=== PATIENT | female | born 1935 | race Caucasian/White ===

== ENCOUNTER 2019-02-13 12:41 | Emergency (ER) | payer OTHER, BC ==
[2019-02-13] MEDS ORDERED: NA CHLORIDE 0.9% 500 ML ONE ×2 (13:56→15:00)
[2019-02-13 14:05] LABS: Absolute Lymphocytes (CBC) 0.7 K/uL (0.7-4.9); Absolute Monocytes 1.1 K/uL (0.1-1.3); Absolute Neutrophil 8.5 K/uL (1.8-8.0); Basophils % 0.2 % (0-1.3); Eosinophils % 0.8 % (0-4.4); Hematocrit 42.6 % (36.0-45.0); Lymphocytes % 6.6 % (15.3-44.8); MPV 8.5 fL (7.6-11.3); Monocytes % 10.6 % (3.3-12.3); RBC Red Blood Cell Count 4.94 M/uL (3.86-4.86)
[2019-02-13 14:18] LABS: Bilirubin Direct 0.2 mg/dL (0-0.2); Bilirubin Total 0.8 mg/dL (0.2-1.0); Protein, Total 7.7 g/dL (6.4-8.2)
[2019-02-13] MEDS ORDERED: POTASSIUM 25 MEQ EFFERV TAB ONE (14:51)
--- NOTE | 2019-02-13 15:52 | ER ---
Nurse's Notes [facility] Name: Marianne Moncada Age: 83 yrs Sex: Female : 1935 Arrival Date: 02/13/2019 Time: 12:46 Bed 19 Private MD: Diagnosis: Diarrhea, unspecified;Hypokalemia;Dehydration Presentation: 02/13 12:46 Presenting complaint: states: n/v/d since and generalized weakness. sv Transition of care: patient was not received from another setting of care. Onset of symptoms was January 2019. Care prior to arrival: None. 12:46 Method Of Arrival: Ambulatory sv 12:46 Acuity: NANCY 3 sv 13:20 Risk Assessment: Do you want to hurt yourself or someone else? Patient reports no em desire to harm self or others. Initial Sepsis Screen: Does the patient meet any 2 criteria? No. Patient's initial sepsis screen is negative. Does the patient have a suspected source of infection? No. Patient's initial sepsis screen is negative. Triage Assessment: 12:49 General: Appears in no apparent distress. uncomfortable, well developed, Behavior is sv calm, cooperative, appropriate for age. Pain: Denies pain. Neuro: Level of Consciousness is awake, alert, obeys commands, Oriented to person, place, time, situation, Gait is steady. Respiratory: Airway is patent Respiratory effort is even, unlabored, Respiratory pattern is regular, symmetrical. GI: Reports diarrhea, nausea, vomiting. Historical: - Allergies: 12:48 Codeine; sv - PMHx: 12:48 Hypertension; sv - PSHx: 12:48 Cholecystectomy; sv - Immunization history:: Adult Immunizations up to date. - Social history:: Smoking status: unknown. - Ebola Screening: : Patient negative for fever greater than or equal to 101.5 degrees Fahrenheit, and additional compatible Ebola Virus Disease symptoms Patient denies exposure to infectious person Patient denies travel to an Ebola-affected area in the 21 days before illness onset No symptoms or risks identified at this time. Screenin:40 Abuse screen: Denies threats or abuse. Nutritional screening: No deficits noted. em Tuberculosis screening: No symptoms or risk factors identified. Fall Risk None identified. Assessment: 12:57 Reassessment: Patient appears in no apparent distress at this time. No changes from sv previously documented assessment. See triage assessment. 14:12 Reassessment: Patient appears in no apparent distress at this time. Patient and/or em family updated on plan of care and expected duration. Pain level reassessed. Patient is alert, oriented x 3, equal unlabored respirations, skin warm/dry/pink. Patient denies pain at this time. 14:57 Reassessment: ambulated to restroom without assistance, unable to provide a UA at this em time. 16:00 Reassessment: Patient appears in no apparent distress at this time. Patient and/or em family updated on plan of care and expected duration. Pain level reassessed. Patient is alert, oriented x 3, equal unlabored respirations, skin warm/dry/pink. Patient denies pain at this time. Patient states feeling better. Vital Signs: 12:48 BP 111 / 74; Pulse 92; Resp 16; Temp 98.6; Pulse Ox 99% ; Weight 68.04 kg; Height 5 ft. sv 4 in. (162.56 cm); Pain 0/10; 14:58 BP 134 / 74; Pulse 92; Resp 18; Pulse Ox 98% on R/A; Pain 0/10; em 16:10 BP 124 / 71; Pulse 87; Resp 15; Pulse Ox 97% on R/A; em 12:48 Body Mass Index 25.75 (68.04 kg, 162.56 cm) sv ED Course: 12:46 Patient arrived in ED. mr 12:48 Triage completed. sv 12:49 Arm band placed on. sv 13:00 Austin Lamas PA is PHCP. [facility] 13:01 Dandy Raymundo MD is Attending Physician. [facility] 13:02 Eduardo Cotto LVN is Primary Nurse. em 13:20 Patient has correct armband on for positive identification. Bed in low position. Call em light in reach. Adult w/ patient. 13:40 Initial lab(s) drawn, by me, sent to lab. Inserted saline lock: 20 gauge in right em antecubital area, using aseptic technique. Blood collected. 16:09 No provider procedures requiring assistance completed. IV discontinued, intact, em bleeding controlled, No redness/swelling at site. Pressure dressing applied. Administered Medications: 13:56 Drug: NS 0.9% 500 ml Route: IV; Rate: bolus; Site: right antecubital; em 14:58 Follow up: IV Status: Completed infusion; IV Intake: 500ml em 14:56 Drug: K-Lyte Effervescent Tablet 50 mEq Route: PO; em 15:15 Follow up: Response: No adverse reaction em 14:56 Drug: NS 0.9% 500 ml Route: IV; Rate: bolus; Site: right antecubital; em 16:11 Follow up: IV Status: Completed infusion; IV Intake: 500ml em Intake: 14:58 IV: 500ml; Total: 500ml. em 16:11 IV: 500ml; Total: 1000ml. em Outcome: 15:50 Discharge ordered by MD. [facility] 16:09 Discharged to home ambulatory, with family. em 16:09 Condition: good 16:09 Discharge instructions given to patient, family, Instructed on discharge instructions, follow up and referral plans. medication usage, Demonstrated understanding of instructions, follow-up care, medications, Prescriptions given X 1. 16:13 Patient left the ED. em Signatures: Iwona Jimenez RN RN Austin Luna PA PA jmm Rivera, Mary mr Munoz, Edgar, [facility] em Corrections: (The following items were deleted from the chart) 12:50 12:48 Pulse 92bpm; Resp 16bpm; Pulse Ox 99%; Temp 98.6F; 68.04 kg; Height 5 ft. 4 in.; sv BMI: 25.7; Pain 0/10; sv
--- NOTE | 2019-02-13 15:52 | EDPHYS ---
Physician Documentation [facility] Name: Marianne Moncada Age: 83 yrs Sex: Female : 1935 Arrival Date: 02/13/2019 Time: 12:46 Bed 19 Private MD: ED Physician Dandy Raymundo HPI: 02/13 13:26 This 83 yrs old Female presents to ER via Ambulatory with complaints of jmm Nausea/Vomiting/Diarrhea, General Weakness. 13:26 The patient presents to the emergency department with nausea, vomiting, diarrhea. jmm Onset: The symptoms/episode began/occurred gradually, 4 day(s) ago. Possible causes: unknown. Associated signs and symptoms: Pertinent negatives: abdominal pain, fever. This is an 83 year old female with a history of htn that presents to the ED with complaints of multiple episodes of diarrhea over the past 4 days and 1 episode of vomiting. Patient describes the diarrhea as watery. Denies abdominal pain, denies fever, denies recent abx use. Patient states she recently traveled from [place]. Denies having any sick contacts. . Historical: - Allergies: 12:48 Codeine; sv - PMHx: 12:48 Hypertension; sv - PSHx: 12:48 Cholecystectomy; sv - Immunization history:: Adult Immunizations up to date. - Social history:: Smoking status: unknown. - Ebola Screening: : Patient negative for fever greater than or equal to 101.5 degrees Fahrenheit, and additional compatible Ebola Virus Disease symptoms Patient denies exposure to infectious person Patient denies travel to an Ebola-affected area in the 21 days before illness onset No symptoms or risks identified at this time. ROS: 13:26 Constitutional: Negative for fever, chills, and weight loss, Cardiovascular: Negative jmm for chest pain, palpitations, and edema, Respiratory: Negative for shortness of breath, cough, wheezing, and pleuritic chest pain. 13:26 Abdomen/GI: Positive for nausea and vomiting, diarrhea, Negative for abdominal pain. 13:26 All other systems are negative. Exam: 13:26 Constitutional: This is a well developed, well nourished patient who is awake, alert, jmm and in no acute distress. Head/Face: atraumatic. Eyes: EOMI, no conjunctival erythema appreciated ENT: Moist Mucus Membranes Neck: Trachea midline, Supple Chest/axilla: Normal chest wall appearance and motion. Cardiovascular: Regular rate and rhythm. No edema appreciated Respiratory: Normal respirations, no respiratory distress appreciated 13:26 Abdomen/GI: Inspection: abdomen appears normal, Bowel sounds: normal, Palpation: abdomen is soft and non-tender, in all quadrants. 13:26 Back: ROM is normal. 13:26 Musculoskeletal/extremity: ROM: intact in all extremities. 13:26 Skin: Appearance: Color: normal in color. 13:26 Neuro: Orientation: is normal, Mentation: is normal, Memory: is normal. 13:26 Psych: Behavior/mood is pleasant, cooperative. Vital Signs: 12:48 BP 111 / 74; Pulse 92; Resp 16; Temp 98.6; Pulse Ox 99% ; Weight 68.04 kg; Height 5 ft. sv 4 in. (162.56 cm); Pain 0/10; 14:58 BP 134 / 74; Pulse 92; Resp 18; Pulse Ox 98% on R/A; Pain 0/10; em 16:10 BP 124 / 71; Pulse 87; Resp 15; Pulse Ox 97% on R/A; em 12:48 Body Mass Index 25.75 (68.04 kg, 162.56 cm) sv MDM: 13:26 Patient medically screened. [facility] 15:47 Data reviewed: vital signs, nurses notes. Counseling: I had a detailed discussion with jeet the patient and/or guardian regarding: the historical points, exam findings, and any diagnostic results supporting the discharge/admit diagnosis, lab results, the need for outpatient follow up, to return to the emergency department if symptoms worsen or persist or if there are any questions or concerns that arise at home. ED course: No abdominal pain on repeat examination. Patient tolerates PO in the ED. I do not suspect an acute intraabdominal process. Patient given strict return precautions. Patient understood and agrees with the plan of care. . 02/13 13:26 Order name: Basic Metabolic Panel [facility] 02/13 13: Order name: CBC with Diff [facility] 02/13 13:26 Order name: Creatinine for Radiology; Complete Time: 14:30 [facility] 02/13 13:26 Order name: Hepatic Function; Complete Time: 14:30 [facility] 02/13 13:26 Order name: Lipase; Complete Time: 14:30 [facility] 02/13 13:27 Order name: Basic Metabolic Panel; Complete Time: 14:30 [facility] 02/13 13:26 Order name: IV Saline Lock; Complete Time: 13:56 [facility] 02/13 13:26 Order name: Labs collected and sent; Complete Time: 13:56 [facility] 02/13 13:27 Order name: CBC with Automated Diff; Complete Time: 14:30 ED[facility] Administered Medications: 13:56 Drug: NS 0.9% 500 ml Route: IV; Rate: bolus; Site: right antecubital; em 14:58 Follow up: IV Status: Completed infusion; IV Intake: 500ml em 14:56 Drug: K-Lyte Effervescent Tablet 50 mEq Route: PO; em 15:15 Follow up: Response: No adverse reaction em 14:56 Drug: NS 0.9% 500 ml Route: IV; Rate: bolus; Site: right antecubital; em 16:11 Follow up: IV Status: Completed infusion; IV Intake: 500ml em Disposition: 02/14 07:54 Co-signature as Attending Physician, Dandy Raymundo MD I agree with the assessment and anisa plan of care. Disposition: 02/13/19 15:50 Discharged to Home. Impression: Diarrhea, unspecified, Hypokalemia, Dehydration. - Condition is Stable. - Discharge Instructions: Food Choices to Help Relieve Diarrhea, Adult, Diarrhea, Adult, Potassium Content of Foods, Dehydration, Adult, [id number]. - Prescriptions for Zofran ODT 4 mg Oral tablet,disintegrating - place 1 tablet by TRANSLINGUAL route every 4-6 hours; 20 tablet. - Medication Reconciliation Form, Thank You Letter, Antibiotic Education, Prescription Opioid Use form. - Follow up: Private Physician; When: 1 - 2 days; Reason: Recheck today's complaints, Continuance of care, Re-evaluation by your physician. Signatures: Dispatcher [employer] Iwona Yang RN RN sv Anderson, Corey, MD MD cha Mickail, Joel, PA PA [facility] Eduardo Cotto, [employer] SUPERVISOR [employer] SUPERVISOR em Corrections: (The following items were deleted from the chart) 02/13 16:13 13:26 Urine Dipstick-Ancillary ordered. [facility] em 16:13 15:50 02/13/2019 15:50 Discharged to Home. Impression: Diarrhea, unspecified; em Hypokalemia; Dehydration. Condition is Stable. Forms are Medication Reconciliation Form, Thank You Letter, Antibiotic Education, Prescription Opioid Use. Follow up: Private Physician; When: 1 - 2 days; Reason: Recheck today's complaints, Continuance of care, Re-evaluation by your physician. jeet
== END 2019-02-13 16:13 | disposition home or self-care (01) ==
LOC: ER 12:41
DX: R19.7 Diarrhea, unspecified (principal); E87.6 Hypokalemia; E86.0 Dehydration; Z88.5 Allergy status to narcotic agent
CPT/HCPCS: 36415; 80048; 80076; 83690; 85025; 96360; 96361; 99284